=== PATIENT | male | born 1955 | race Caucasian/White ===

== ENCOUNTER 2019-11-10 21:46 | Emergency (ER) | payer MEDICAID, SELFPAY ==
[2019-11-10 21:48] VITALS: BP 180/108; PULSE 78; RESP 18; TEMP 36.9; O2SAT 96; BMI 32.8
--- NOTE | 2019-11-10 22:01 | ED_ITS ---
Entered by Albertina Jacobs, acting as scribe for Nadir Persaud MD Nov 10, 2019 21:46 HPI - General Adult General: Chief complaint: Airway/Esophagus Foreign Body Stated complaint: choking resolved Time Seen by Provider: 11/10/19 21:58 Source: patient Mode of arrival: EMS Limitations: no limitations History of Present Illness: HPI narrative: 64 yo m came to the er by [facility] for choking that was resolved on scene. Pt said that he was setting down eating and pt has a hiatal hernia. Family said that she stepped out that he was slobbering, she noticed that pt was choking and family gave him the heimlich. 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) Radiation: non-radiation Pain Consistency: now resolved Relieving factors: none Exacerbating factors: none Associated symptoms: Reports no associated symptoms; Deny chest pain, dyspnea, headache(s), nausea, rash or vomiting Treatments prior to arrival: none Review of Systems General: Reports: other (negative unless marked ) Const: Denies: fever, chills, body aches or change in appetite Eyes: Denies: blurry vision or eye discomfort ENMT: Denies: throat pain or dental pain Card: Denies: chest pain Resp: Denies: shortness of breath GI: Denies: abdominal pain, nausea, vomiting or diarrhea : Denies: painful urination Musc: Denies: neck pain or back pain Skin/Breast: Denies: rash Neuro: Denies: headache Psych: Denies: depression Kole/Lymph: Denies: easy bruising All/Imm: Denies: hives Physical Exam Const: COMMON NORMALS: no apparent distress, oriented x3 and healthy appearing HENMT: COMMON NORMALS: normocephalic and head/scalp atraumatic HEAD & SCALP: normocephalic and atraumatic Eye: COMMON NORMALS: PERRL and EOMs intact bilaterally PUPIL: Yes PERRL Neck/C-Spine: COMMON NORMALS: full ROM and supple Chest: COMMONS NORMALS: inspection of chest normal and palpation of chest no rmal Resp: COMMON NORMALS: normal respiratory effort, no retractions, no use of accessory muscles and clear to auscultation bilaterally AUSCULTATION: clear to auscultation bilaterally Cardio: COMMON NORMALS: regular rate, regular rhythm and no murmurs RATE: regular rate RHYTHM: regular rhythm GI: COMMON NORMALS: normal to inspection, nondistended, normoactive bowel sounds, soft to palpation, non-tender and no masses PALPATION: Yes soft Extremity: COMMON NORMALS: normal to inspection and full ROM Neuro: COMMON NORMALS: oriented x3, moves all extremities and no focal motor deficits Psych: COMMON NORMALS: mental status grossly normal, thought process normal and cooperative THOUGHT PROCESS: normal thought process Skin: COMMON NORMALS: no rashes or lesions noted and no wounds GENERAL SKIN EXAM: no rashes or lesions noted Course Vital Signs: Vital signs: Vital Signs Temperature 98.4 F 11/10/19 21:48 Pulse Rate 78 11/10/19 21:48 Respiratory Rate 18 11/10/19 21:48 Blood Pressure 180/108 11/10/19 21:48 Pulse Oximetry 96 11/10/19 21:48 MDM - General Adult MDM Narrative: Medical decision making narrative: Patient presents here with history consistent with a esophageal food impaction that is since cleared. Patient is able to drink a glass of water here without any problems. He has no cough or shortness of breath. He has no foreign body sensation in his throat. Patient is stable for discharge and we will set him up appointment with surgery as he likely needs another EGD in the future. He is to return if worsening. Discharge Plan Discharge Patient Disposition: Home, Self-Care Clinical Impression: Food impaction of esophagus Qualifiers: Encounter type: initial encounter Qualified Code(s): T18.128A - Food in esophagus causing other injury, initial encounter Condition: Stable Discharge Orders: Discharge Order (Routine); Ordered 11/10/19 Ordered By: Nadir Persaud Referrals: Florentino Tuttle MD [Physician] - 4-7 days Discharge Diet: Advance as tolerated Discharge Activity: Resume usual activity Patient Instructions: Chronic Dysphagia (ED) Coding Level of Care Code ED Proposal Rep for Chg Fwd The documentation recorded by the Reynaldo tejada Stephanie Lyn, accurately reflects the service I personally performed and the decisions made by Hung vaughan Korby, MD Nov 10, 2019 21:46
[2019-11-10 22:25] VITALS: BP 148/90; PULSE 76; RESP 16; O2SAT 96
--- NOTE | 2019-11-12 10:01 | DCPLANNER ---
biofuels plant manager had message to schedule a follow up appointment for patient with De. Tuttle. biofuels plant manager called the office of Dr. Tuttle was told that new patients were scheduling about 4 weeks out. biofuels plant manager called patient and explained this to patient and asked who patient would like for comp field case manager to schedule an appointment with Dr. Tuttle or [facility]. Patient stated that he would like for the follow up appointment to be scheduled with [facility], patient also stated that he would like the appointment at the end of next week. biofuels plant manager called [facility], spoke with Kimberlee, gave clinic patients information, was told that patients information would be printed and reviewed. Clinic will call comp field case manager and patient with appointment information.
--- NOTE | 2019-11-19 08:40 | DCPLANNER ---
Patient had an appointment scheduled for 11.17.[address] Chatman, at [facility], patient did attend the appointment.
== END 2019-11-10 22:27 | disposition home or self-care (01) ==
PROVIDERS: Emergency Provider Emergency Medicine
DX: T18.128A Food in esophagus causing other injury, initial encounter (principal)
CPT/HCPCS: 12345; 99281

== ENCOUNTER 2020-01-07 08:34 | Outpatient (CLI) | payer MEDICAID, SELFPAY ==
--- NOTE | 2020-01-07 08:48 | FL_ITS ---
WS: [id number] DOUBLE CONTRAST UPPER GI EXAMINATION HISTORY: DIFFICULTY IN SWALLOWING; DYSPHAGIA COMPARISON: None available. FLUOROSCOPY TIME: 1.8 minutes. Member Of Technical Staff film reveals normal distribution of gas throughout the GI tract. No suspicious masses or calcif ications. Barium mixture traversed normally throughout the esophagus. No filling defects within the stomach. Du odenal bulb was normally distensible and pliable. Small amount of distal esophageal reflux disease. Small reducible hiatal hernia. FL/FL upper GI w air* [id number] IMPRESSION: 1. No esophageal strictures. 2. Small amount of gastroesophageal reflux. 3. Small reducible hiatal hernia.
== END 2020-01-07 08:35 | disposition home or self-care (01) ==
LOC: RAD 08:39
PROVIDERS: Visit Provider Surgery
DX: R13.10 Dysphagia, unspecified (principal); K21.9 Gastro-esophageal reflux disease without esophagitis; K44.9 Diaphragmatic hernia without obstruction or gangrene
CPT/HCPCS: 74246

== ENCOUNTER 2020-02-16 06:29 | Day surgery (SDC) | payer MEDICAID, SELFPAY ==
[2020-02-14 13:17] VITALS: BMI 34.3
[2020-02-16 06:48] VITALS: BP 139/88; PULSE 56; RESP 18; TEMP 36.1; O2SAT 99
--- NOTE | 2020-02-16 07:04 | ANES.PREANE2 ---
Pre-Anesthetic Assessment Pre-Anesthetic Assessment: Height/Weight: Height 1.63 m Weight 90.718 kg Temp Pulse Resp BP Pulse Ox 97 F L 56 L 18 139/88 99 02/16/20 06:48 02/16/20 06:48 02/16/20 06:48 02/16/20 06:48 02/16/20 06:48 Preop Diagnosis: Hematemsis/Dysphagia/Screening colonoscopy Proposed Procedure: Operation Date: 02/16/20 07:45 Proposed Procedures p EGD/COLON 17999 36037 R13.10 K62.5(Not Applicable) - Aashish Chatman MD s Colonoscopy(Not Applicable) - Aashish Chatman MD Familial anesthetic complications: None Was Beta Aniya taken within 24 hours: N/A Last intake: Intake Last Liquid Date 02/16/20 Last Liquid Time 22:00 Last Solid Date 02/14/20 Last Solid Time 18:00 Social: Social History: No alcohol and No tobacco Exam: Pre-Anes Outpt Exam: alert, oriented x 3, clear to auscultation bilaterally and regular rate & rhythm Airway: Cervical ROM: WNL Additional comments: missing CV/HEM: CV/HEM: HTN : : None reported Hepatic: Hepatic: None reported GI: GI: GERD and Hiatus hernia Metabolic: Metabolic: DM and Hyperlipidemia Musc/skel: Musc/skel: None reported Neuropsych: Neuropsych: None reported Anesthetic Plan: ASA status: 3 Anesthesia: MAC Risk of > 500 ml blood loss (7ml/kg in children): No PFSH Anesthesia PFSH: Medical History History of colon polyps History of head injury History of prostate cancer Surgical History History of appendectomy History of colonoscopy History of cornea transplant History of esophagogastroduodenoscopy (EGD) History of nasal surgery History of radical prostatectomy History of tonsillectomy Family History Denies family history of Anesthesia complication Bleeding disorder Social History Smoking and tobacco status: never smoked Second hand smoke exposure: No Alcohol intake: never Desire information about substance/drug rehabilitation?: No Adopted: No Lives independently: Yes Household members: spouse Housing: House Marital status: service: No Current occupational status: retired and disabled Current occupational exposures/hazards: No Pets and animals: No History of recent travel: No Current gender identity: Male [employer]ette/[employer]regation: [employer] Special nanette needs: No Agree to transfusion: No Financial difficulty paying for basics: Decline to Answer Data Anesthesia Cardiac Studies: No Data to Display
[2020-02-16 07:12] LABS: Glucose Point of Care 136 mg/dL (70-110)
--- NOTE | 2020-02-16 07:23 | W.PM.OPSUD ---
Surgery/Procedure H&P Update DATE OF PROCEDURE: February 16, 2020 DATE H&P PERFORMED: 11/05/19 H&P UPDATE INFORMATION: I have reviewed H&P completed within last 30 days, I have examined patient prior to procedure and No changes to prior documentation PREOP DIAGNOSIS: Hematemsis/Dysphagia/Screening colonoscopy PRIMARY INDICATION FOR PROCEDURE: The same PLANNED PROCEDURE: Operation Date: 02/16/20 07:45 Proposed Procedures p EGD/COLON [id number] R13.10 K62.5(Not Applicable) - Aashish Chatman MD s Colonoscopy(Not Applicable) - Aashish Chatman MD
[2020-02-16] MEDS: sodium chloride 0.9% 1,000 ML 30 ML IV (07:25)
[2020-02-16 08:04] VITALS: BP 149/98; PULSE 67; RESP 16; TEMP 36.3; O2SAT 94
[2020-02-16 08:20] VITALS: BP 138/96; PULSE 60; RESP 16; O2SAT 100
--- NOTE | 2020-02-16 09:47 | ANE.PACU2 ---
Inpatient post-anesthesia follow up: Airway intact: Yes Vital signs: Temperature 97.3 F Pulse Rate 60 Respiratory Rate 16 Blood Pressure 138/96 Pulse Oximetry 100 Oxygen Delivery Me thod Room Air Oxygen Flow Rate Fraction of Inspir ed Oxygen Hydration adequate: Yes Nausea and vomiting: No Mental status: Baseline
[2020-02-17 13:32] LABS: H. Pylori / CLO Test Negative
== END 2020-02-16 08:35 | disposition home or self-care (01) ==
PROVIDERS: Visit Provider Surgery
PROC: 0DJ08ZZ Inspection of Upper Intestinal Tract, Via Natural or Artificial Opening Endoscopic (ICD-10-PCS; CPT 43235; principal; 2020-02-16 07:45)
PROC: 0DJD8ZZ Inspection of Lower Intestinal Tract, Via Natural or Artificial Opening Endoscopic (ICD-10-PCS; CPT 45378; 2020-02-16 07:45)
DX: R13.10 Dysphagia, unspecified (principal); K92.0 Hematemesis; K92.1 Melena; D12.8 Benign neoplasm of rectum; K22.70 Barrett's esophagus without dysplasia; K44.9 Diaphragmatic hernia without obstruction or gangrene; K29.70 Gastritis, unspecified, without bleeding; I10 Essential (primary) hypertension; K21.9 Gastro-esophageal reflux disease without esophagitis; E11.9 Type 2 diabetes mellitus without complications; E78.5 Hyperlipidemia, unspecified; Z85.46 Personal history of malignant neoplasm of prostate
CPT/HCPCS: 12345; 36416; 43239; 45385; 82962; 87077; 88305; J2704; J7030

== ENCOUNTER → 2020-05-23 09:18 | Outpatient (BNVA) | payer MEDICAID, SELFPAY | PROVIDERS: PCP Family Medicine; Referring Provider Family Medicine; Visit Provider Dermatology | DX: R21 Rash and other nonspecific skin eruption (principal); L73.9 Follicular disorder, unspecified; B35.1 Tinea unguium | CPT/HCPCS: 99203 ==

== ENCOUNTER → 2020-06-15 17:02 | Outpatient (BNVA) | payer MEDICARE, MEDICAID, OTHER, SELFPAY | PROVIDERS: PCP Family Medicine; Visit Provider Dermatology | DX: D48.9 Neoplasm of uncertain behavior, unspecified (principal) | CPT/HCPCS: 88304 ==